=== PATIENT | male | born 1990 | race Caucasian/White ===

== ENCOUNTER 2017-02-27 14:53 | Emergency (ER) | payer OTHER ==
[~2017-02-27] VITALS: Ht 180.3 cm; Wt 95.0 kg
[2017-02-27 14:59] VITALS: Ht 180.3 cm; Wt 95.0 kg
[2017-02-27] MEDS ORDERED: IBUPROFEN 800 MG TAB PO ONE (15:00)
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
[2017-02-27 16:22] VITALS: BP 127/62; PULSE 71; RESP 18
[2017-02-27] MEDS ORDERED: ONDA4TAB14 PO (17:30)
[2017-02-27] MEDS ORDERED: IBUP800T25 PO (17:30)
[2017-02-27] MEDS ORDERED: HYDR-902 PO (17:30)
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
== END 2017-02-27 18:43 | disposition home or self-care (01) ==
LOC: E/R 14:53
DX: S50.01XA Contusion of right elbow, initial encounter (principal); S90.01XA Contusion of right ankle, initial encounter; S51.011A Laceration without foreign body of right elbow, initial encounter; R07.9 Chest pain, unspecified; V29.49XA Motorcycle driver injured in collision with other motor vehicles in traffic accident, initial encounter
CPT/HCPCS: 12001; 71010; 72170; 73080; 73562; 73610; Z7502; Z7610

== ENCOUNTER 2017-03-06 10:30 | Emergency (ER) | payer OTHER ==
[~2017-03-06] VITALS: Ht 180.3 cm; Wt 89.0 kg
[~2017-03-06 10:30] MED LIST: HYDR-902 PO; IBUP800T25 PO; ONDA4TAB14 PO
[2017-03-06 10:40] VITALS: Ht 180.3 cm; Wt 89.0 kg
[2017-03-06] MEDS ORDERED: IBUP-1542 PO (11:42)
[2017-03-06] MEDS ORDERED: HYDR-902 PO (11:42)
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
== END 2017-03-06 14:55 | disposition home or self-care (01) ==
LOC: FTE 10:30
DX: S93.401A Sprain of unspecified ligament of right ankle, initial encounter (principal); S83.91XA Sprain of unspecified site of right knee, initial encounter; V89.2XXA Person injured in unspecified motor-vehicle accident, traffic, initial encounter
CPT/HCPCS: 99283